=== PATIENT | male | born 1975 | race Caucasian/White ===

== ENCOUNTER 2017-04-24 16:13 | Emergency (ER) | payer OTHER, BC ==
[2017-04-24] MEDS ORDERED: Sodium Chloride 0.9% 1,000 ML IV ONE ×2 (16:39→18:41)
--- NOTE | 2017-04-24 16:39 | EDM.PDOC ---
ED HPI GENERAL MEDICAL PROBLEM - General Chief Complaint: General Stated Complaint: FLU/TYPE B Time Seen by Provider: 04/24/17 16:25 Source of Information: Reports: Patient History Limitations: Reports: No Limitations - History of Present Illness INITIAL COMMENTS - FREE TEXT/NARRATIVE: HISTORY AND PHYSICAL: History of present illness: [Pt comes to the ER reporting that he has Influenza B. Had a flu swab completed at [facility] today but was not seen there by a healthcare provider. Was advised to come to the emergency room for treatment. Developed symptoms of body aches, fatigue, and cough within the past 72 hours. He has felt very dehydrated and has not had anything to drink today. Has decreased appetite. No abdominal pain. No nausea, vomiting, diarrhea or constipation. No black or tarry stools and no blood in his bowel movements. Urine is normal. 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 2 cardiac stents. Does not have a local PCP or follow with any specialists regularly. [facility] is contacted by phone and confirms positive influenza B swab.] Review of systems: As per history of present illness and below otherwise all systems reviewed and negative. Past medical history: As per history of present illness and as reviewed below otherwise noncontributory. Surgical history: As per history of present illness and as reviewed below otherwise noncontributory. Social history: No reported history of drug or alcohol abuse. Family history: As per history of present illness and as reviewed below otherwise noncontributory. Physical exam: HEENT: Atraumatic, normocephalic. Oral mucous membranes are mildly dry. Neck supple, no lymphadenopathy. Throat is clear. Lungs: Clear to auscultation, breath sounds equal bilaterally. Cough is dry and hacking. Heart: S1S2, regular rate and rhythm. No murmur gallop click or rub., negative for clicks, rubs, or JVD. Abdomen: Bowel sounds are normoactive throughout. Soft, nondistended, nontender. Negative for masses, guarding and rebound. Pelvis: Stable nontender. Genitourinary: Deferred. Rectal: Deferred. Extremities: Atraumatic, negative for cords or calf pain. Neurovascular unremarkable. Neuro: Awake, alert, oriented. Motor and sensory unremarkable throughout. Exam nonfocal. 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 Patient is feeling improved after 2 L of normal saline. Discussed with the patient that his lab results chest x-ray and EKG show no abnormalities. We reviewed he falls outside of the treatment window that would be beneficial for Tamiflu. We discussed conservative and symptomatic therapies. He is given referral to establish care with local PCP. Push fluids, get plenty of rest. He is in agreement with today' s plan. Strict return precautions are reviewed.] Definitive disposition and diagnosis as appropriate pending reevaluation and review of above. Bilateral Chest Pain Score (Numeric/FACES): 8 - Related Data Allergies Allergy/AdvReac Type Severity Reaction Status Date / Time No Known Allergies Allergy Verified 04/24/17 16:52 Home Meds: Home Meds Aspirin 81 mg DAILY 04/24/17 [History] Bp Med 04/24/17 [History] Mycophenolate Mofetil [Cellcept] 1,000 mg BID 04/24/17 [History] Tacrolimus [Prograf] 0.5 mg DAILY 04/24/17 [History] predniSONE [Prednisone] 0.5 mg DAILY 04/24/17 [History] ED ROS GENERAL - Review of Systems Review Of Systems: ROS reveals no pertinent complaints other than HPI. ED EXAM, GENERAL - Physical Exam Exam: See Below Course - Vital Signs Last Recorded V/S: Last Vital Signs Temp 102.7 F H 04/24/17 18:49 Pulse 101 H 04/24/17 17:27 Resp 24 H 04/24/17 17:27 BP 179/91 H 04/24/17 17:27 Pulse Ox 98 04/24/17 17:27 - Orders/Labs/Meds Orders: Active Orders 24 hr Category Date Time Status EKG Documentation Completion [RC] STAT Care 04/24/17 16:36 Active Chest 2V [CR] Stat Exams 04/24/17 16:37 Taken Labs: Laboratory Tests 04/24/17 04/24/17 04/24/17 Range/Units 16:55 16:55 16:55 WBC 4.33 (4.0-11.0) K/uL RBC 4.92 (4.50-5.90) M/uL Hgb 14.2 (13.0-17.0) g/dL Hct 42.7 (38.0-50.0) % MCV 86.8 (80.0-98.0) fL MCH 28.9 (27.0-32.0) pg MCHC 33.3 (31.0-37.0) g/dL RDW Std Deviation 46.0 (28.0-62.0) fl RDW Coeff of Olga 15 (11.0-15.0) % Plt Count 122 L (150-400) K/uL MPV 10.10 (7.40-12.00) fL Add Manual Diff YES Neutrophils % (Manual) 73 (48.0-80.0) % Band Neutrophils % 6 % Lymphocytes % (Manual) 8 L (16.0-40.0) % Monocytes % (Manual) 11 (0.0-15.0) % Basophils % (Manual) 2 H (0.0-1.5) % Nucleated RBC % 0.0 /100WBC Absolute Seg Neuts 3.2 (1.4-5.7) Band Neutrophils # 0.3 Lymphocytes # (Manual) 0.3 L (0.6-2.4) Monocytes # (Manual) 0.5 (0.0-0.8) Basophils # (Manual) 0.1 (0.0-0.1) Nucleated RBCs # 0 K/uL Sodium 137 (136-146) mmol/L Potassium 4.0 (3.5-5.1) mmol/L Chloride 105 (98-110) mmol/L Carbon Dioxide 24 (21-31) mmol/L BUN 15 (6.0-23.0) mg/dL Creatinine 1.3 (0.6-1.5) mg/dL Est Cr Clr Drug Dosing TNP Estimated GFR (MDRD) > 60.0 ml/min Glucose 91 (60-110) mg/dL Calcium 9.1 (8.8-10.8) mg/dL Total Bilirubin 0.5 (0.1-1.5) mg/dL AST 22 (5-40) IU/L ALT 23 (8-54) IU/L Alkaline Phosphatase 72 (40-150) Total Protein 7.2 (6.0-8.0) g/dL Albumin 4.1 (3.5-5.0) g/dL Globulin 3.1 (2.0-3.5) g/dL Albumin/Globulin Ratio 1.3 (1.3-2.8) Urine Color YELLOW Urine Appearance CLEAR Urine pH 6.0 (5.0-8.0) Ur Specific Geraldine 1.020 (1.001-1.035) Urine Protein TRACE (NEGATIVE) mg/dL Urine Glucose (UA) NEGATIVE (NEGATIVE) mg/dL Urine Ketones TRACE H (NEGATIVE) mg/dL Urine Occult Blood NEGATIVE (NEGATIVE) Urine Nitrite NEGATIVE (NEGATIVE) Urine Bilirubin NEGATIVE (NEGATIVE) Urine Urobilinogen 0.2 (<2.0) EU/dL Ur Leukocyte Esterase NEGATIVE (NEGATIVE) Urine RBC 0-3 (0-2/HPF) Urine WBC 0-1 (0-5/HPF) Ur Epithelial Cells RAR (NONE-FEW) Urine Bacteria RARE (NEGATIVE) Meds: Medications Discontinued Medications Generic Name Dose Route Start Last Admin Trade Name Freq PRN Reason Stop Dose Admin Acetaminophen 1,000 mg 04/24/17 17:33 04/24/17 17:58 Tylenol Extra Strength PO 04/24/17 17:34 1,000 mg ONETIME ONE Administration Sodium Chloride 1,000 mls @ 999 mls/hr 04/24/17 16:39 04/24/17 17:01 Normal Saline IV 04/24/17 17:39 999 mls/hr STAT ONE Administration Sodium Chloride 1,000 mls @ 999 mls/hr 04/24/17 18:41 04/24/17 18:46 Normal Saline IV 04/24/17 19:41 999 mls/hr STAT ONE Administration Ibuprofen 400 mg 04/24/17 18:41 04/24/17 18:49 Motrin PO 04/24/17 18:42 400 mg ONETIME ONE Administration Departure - Departure Time of Disposition: 19:40 Disposition: Home, Self-Care 01 Condition: Good Clinical Impression: Influenza B - Discharge Information Instructions: Influenza, Adult, [id number] Referrals: PCP,None [Primary Care Provider] - Forms: ED Department Discharge Additional Instructions: The following information is given to patients seen in the emergency department who are being discharged to home. This information is to outline your options for follow-up care. We provide all patients seen in our emergency department with a follow-up referral. The need for follow-up, as well as the timing and circumstances, are variable depending upon the specifics of your emergency department visit. If you don't have a primary care physician on staff, we will provide you with a referral. We always advise you to contact your personal physician following an emergency department visit to inform them of the circumstance of the visit and for follow-up with them and/or the need for any referrals to a consulting specialist. The emergency department will also refer you to a specialist when appropriate. This referral assures that you have the opportunity for follow-up care with a specialist. All of these measure are taken in an effort to provide you with optimal care, which includes your follow-up. Under all circumstances we always encourage you to contact your private physician who remains a resource for coordinating your care. When calling for follow-up care, please make the office aware that this follow-up is from your recent emergency room visit. If for any reason you are refused follow-up, please contact the [facility] emergency department at and asked to speak to the emergency department charge nurse. [facility] [address] [place] [id number] Establish care with a local primary care provider at the clinic listed above and follow-up there in the next 48-72 hours.. Push fluids, get plenty of rest, avoid dehydration. Alternate Tylenol with ibuprofen every 2-3 hours as needed for fever or discomfort. Robitussin or Delsym as needed for cough. Return to ER as needed as discussed. - My Orders Last 24 Hours: My Active Orders 04/24/17 16:36 EKG Documentation Completion [RC] STAT 04/24/17 16:37 Chest 2V [CR] Stat - Assessment/Plan Last 24 Hours: My Active Orders 04/24/17 16:36 EKG Documentation Completion [RC] STAT 04/24/17 16:37 Chest 2V [CR] Stat
[2017-04-24] MEDS ORDERED: Acetaminophen 500 MG Tab PO ONE (17:33)
[2017-04-24 17:44] LABS: CHLORIDE,CL 105 mmol/L (98-110); SODIUM,NA 137 mmol/L (136-146)
[2017-04-24] MEDS ORDERED: Ibuprofen 400 MG Tab PO ONE (18:41)
--- NOTE | 2017-04-25 12:37 | CR ---
EXAM DATE: 04/24/17 PATIENT'S AGE: 42 Patient: TIA YOON Facility: [place], [place] Site . Site : [id number] Study: XRay Chest [id number]/[id number] 6:30:02 PM Ordering Physician: Doctor Barbour Final Report: INDICATION: cough, dx with influenza type B today TECHNIQUE: Chest 2 views COMPARISON: None FINDINGS: Cardiovascular and mediastinum: Heart size and vasculature are normal in caliber and appearance. Mediastinum is within normal limits. Lungs and pleural spaces: No focal consolidation. No sign of pleural effusion. No pneumothorax. Bones and soft tissues: No significant findings. IMPRESSION: No acute cardiopulmonary disease Dictated by Tommy Rosenthal MD @ 04/24/2017 6:40:59 PM Dictated by: Tommy Rosenthal MD @ 04/24/2017 18:41:08 (Electronic Signature) Report Signed by Proxy. [email or web address]
== END 2017-04-24 20:00 | disposition home or self-care (01) ==
LOC: MW.ED 16:13
DX: J10.1 Influenza due to other identified influenza virus with other respiratory manifestations (principal); Z79.82 Long term (current) use of aspirin; Z79.899 Other long term (current) drug therapy
CPT/HCPCS: 36415; 71046; 80053; 81001; 85025; 93005; 96360; 96361; 99284; A9270; J7040

== ENCOUNTER 2020-11-08 05:56 | Emergency (ER) | payer BC, OTHER ==
[2020-11-08] MEDS ORDERED: Sodium Chloride 0.9% 10 ML Syringe FLUSH PRN (06:23)
[2020-11-08] MEDS ORDERED: Sodium Chloride 0.9% 2.5 ML Syringe FLUSH PRN (06:23)
--- NOTE | 2020-11-08 06:23 | EDM.PDOC ---
<Porter Iglesias - Last Filed: 11/08/20 06:14> ED HPI GENERAL MEDICAL PROBLEM - General Chief Complaint: Fever Stated Complaint: FEVER- DOUBLE ORGAN TRANSPLANT RECIPIENT Time Seen by Provider: 11/08/20 05:58 - History of Present Illness INITIAL COMMENTS - FREE TEXT/NARRATIVE: History of present illness: [] The patient is fever cough headache and body aches. He is gotten short of breath at work. The patient is not vaccinated for Covid because he personally knows 3 people to got the vaccine got terribly ill and is worried about his transplant. 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 The patient has not used insulin since. He was originally a type 1 insulin-dependent diabetic. Review of systems: As per history of present illness and below otherwise all systems reviewed and negative. Past medical history: As per history of present illness and as reviewed below otherwise noncontributory. Surgical history: As per history of present illness and as reviewed below otherwise noncontributory. Social history: No reported history of drug or alcohol abuse. Family history: As per history of present illness and as reviewed below otherwise nonc ontributory. Physical exam: Constitutional - well developed, well-nourished and in no acute distress HEENT - normocephalic, no evidence of trauma - external nose and mouth normal - no mass in neck and no JVD - mucosae moist EYES - full EOM, PERRL, no icterus - no evidence of inflammation, injection, or drainage Respiratory - no respiratory distress, equal bilateral expansion, lungs clear to auscultation and no abnormal lung sounds Cardiovascular - Regular Rhythm with S1 and S2 appreciated and no murmur, gallop or rub. GI - abdomen soft without distension or organomegaly - normal bowel sounds - no guard or rebound Musculoskeletal no gross deformity of long bones or joints - no tenderness, swelling or edema Neurologic - Alert and oriented times four - CN II-XII grossly intact - motor sensory and coordination symmetrically normal Psychiatric - appropriate mood and affect with normal thought content Hematologic - No petechiae or purpura - mucosa appropriate color and sclera not pale - normal nail bed color and refill Integument - no rash or evidence of trauma - normal turgor Diagnostics: [] Therapeutics: [] Impression: [] Plan: [] Definitive disposition and diagnosis as appropriate pending reevaluation and review of above. - Related Data Allergies Allergy/AdvReac Type Severity Reaction Status Date / Time No Known Allergies Allergy Verified 04/24/17 16:52 Home Meds: Home Meds Aspirin 81 mg DAILY 04/24/17 [History] Bp Med 04/24/17 [History] Tacrolimus [Prograf] 0.5 mg DAILY 04/24/17 [History] mycophenolate mofetiL [Cellcept] 1,000 mg BID 04/24/17 [History] predniSONE [Prednisone] 0.5 mg DAILY 04/24/17 [History] Past Medical History Cardiovascular History: Reports: Hypertension, Prior Cardiac Arrest, Stents, Other (See Below) Other Cardiovascular History: v fib episodes, TIA Respiratory History: Reports: None Genitourinary History: Reports: Chronic Renal Insuffiency, Dialysis, Dialysis, Peritoneal, Other (See Below) Other Genitourinary History: cath site fistula, kidney transplant Neurological History: Reports: Seizure, TIA Psychiatric History: Reports: None Endocrine/Metabolic History: Reports: Other (See Below) Other Endocrine/Metabolic History: pancreatic transplant - Past Surgical History HEENT Surgical History: Reports: Laser Surgery Cardiovascular Surgical History: Reports: Coronary Artery Stent GI Surgical History: Reports: Appendectomy, Cholecystectomy Social & Family History - Family History Family Medical History: No Pertinent Family History ED ROS GENERAL - Review of Systems Review Of Systems: Comprehensive ROS is negative, except as noted in HPI. ED EXAM, GENERAL - Physical Exam Exam: See Below Free Text/Narrative:: My physical exam is in the HPI Departure - Departure Disposition: Home, Self-Care 01 Clinical Impression: COVID - Discharge Information Instructions: What You Should Know About COVID-19 to Protect Yourself and Others - [facility] Referrals: Shawna Murrieta NP [Primary Care Provider] - Forms: ED Department Discharge Additional Instructions: Home Care Instructions for Patients with Mild Respiratory Infection Most people with respiratory infections like colds, the flu, and Coronavirus Disease (COVID-19) will have mild illness and can get better with appropriate home care and without the need to see a provider. People who are elderly, , or have a weak immune system, or other medical problem are at higher risk of more serious illness or complications. It is recommended that they carefully monitor their symptoms closely and seek medical care early if their symptoms get worse. TREATMENT AND MEDICAL CARE Treatment There is no specific treatment for most viruses including those that that cause the common cold and those that cause COVID-19. Sometimes there is treatment for the viruses that cause influenza if given early. Antibiotics treat infections caused by bacteria, but they do not work against viruses. Most people recover on their own from these viruses, including COVID-19. Here are steps that you can take to help you get better: Rest Drink plenty of fluids Take [id number] cold and flu medications to reduce fever and pain. Fol low the instructions on the package, unless your doctor gave you instructions. Note that these medicines do not cure the illness and therefore do not stop you from spreading germs. Children should not be given medication that contains aspirin (acetylsalicylic acid) because it can cause a rare but serious illness called Tong syndrome. Medicines without aspirin include acetaminophen (Tylenol) and ibuprofen (Advil, Motrin). Children younger than age 2 should not be given any yzqx-edu-[id number] cold medications without first speaking with a doctor. Seeking Medical Care You should seek medical care if you are not getting better within a week, or if your symptoms get worse. If you are elderly, , have a weak immune system, or other medical problems, call your doctor right away. It is best to call ahead of time to discuss your symptoms, if possible. This may allow you to receive the advice you need by phone. By avoiding a visit to a healthcare facility, you protect yourself from getting a new infection and protect others from catching an infection from you. If you do visit a healthcare facility, put on a mask to protect other patients and staff. It is recommended that you seek medical care for serious symptoms, such as: People with potentially life-threatening symptoms should call 911. If possible, put on a facemask before emergency medical services arrive. PROTECTING OTHERS Follow the steps below to help prevent the disease from spreading to people in your home and community. Stay home when you are sick Stay home do not go to work, school, or public areas. Stay home for at least 24 hours after your symptoms have gone away without the use of fever-reducing medicines. If you must leave home while you are sick, try to avoid using public transportation, ride-shares, and taxis. Wear a mask if possible. Separate yourself from other people and animals in your home Stay in a specific room and away from other people in your home as much as possible. Use a separate bathroom, if available. Try to stay at least 6 feet from others. Do not handle pets or other animals while you are sick. Cover your coughs and sneezes Cover your mouth and nose with a tissue when you cough or sneeze. Throw used tissues in a lined trash can; immediately wash your hands. Avoid sharing personal household items Do not share dishes, drinking glasses, cups, eating utensils, towels, or bedding with other people or pets in your home. Wash them thoroughly with soap and water after use. Clean your hands often Wash your hands often with soap and water for at least 20 seconds. If soap and water are not available, clean your hands with an alcohol-based hand life educator that contains at least 60% alcohol, covering all surfaces of your hands and rubbing them together until they feel dry. Use soap and water if your hands are visibly dirty. Clean all high-touch surfaces every day High touch surfaces include counters, tabletops, doorknobs, bathroom fixtures, toilets, phones, keyboards, tablets, and bedside tables. Also, clean any surfaces that may have body fluids on them. Use a household cleaning spray or wipe, according to the product label instructions. <Ivan Buenrostro - Last Filed: 11/08/20 07:54> Course - Vital Signs Last Recorded V/S: Last Vital Signs Temp 97.8 F 11/08/20 06:12 Pulse 81 11/08/20 07:10 Resp 16 11/08/20 07:10 BP 136/77 11/08/20 07:10 Pulse Ox 97 11/08/20 07:10 - Orders/Labs/Meds Orders: Active Orders 24 hr Category Date Time Status Sodium Chloride 0.9% [Saline Flush] Med 11/08/20 06:23 Active 10 ml FLUSH ASDIRECTED PRN Sodium Chloride 0.9% [Saline Flush] Med 11/08/20 06:23 Active 2.5 ml FLUSH ASDIRECTED PRN Saline Lock Insert [OM.PC] Stat Oth 11/08/20 06:23 Ordered Medication Orders Sodium Chloride (Sodium Chloride 0.9% 10 Ml Syringe) 10 ml FLUSH ASDIRECTED PRN PRN Reason: Keep Vein Open Sodium Chloride (Sodium Chloride 0.9% 2.5 Ml Syringe) 2.5 ml FLUSH ASDIRECTED PRN PRN Reason: Keep Vein Open Labs: Laboratory Tests 11/08/20 11/08/20 11/08/20 Range/Units 06:37 06:37 06:40 WBC 4.00 (4.0-11.0) K/uL RBC 4.79 (4.50-5.90) M/uL Hgb 14.5 (13.0-17.0) g/dL Hct 41.8 (38.0-50.0) % MCV 87.3 (80.0-98.0) fL MCH 30.3 (27.0-32.0) pg MCHC 34.7 (31.0-37.0) g/dL RDW Std Deviation 43.0 (28.0-62.0) fl RDW Coeff of Olga 14 (11.0-15.0) % Plt Count 152 (150-400) K/uL MPV 10.40 (7.40-12.00) fL Neut % (Auto) 60.9 (48.0-80.0) % Lymph % (Auto) 19.0 (16.0-40.0) % [place] % (Auto) 17.8 H (0.0-15.0) % Eos % (Auto) 1.0 (0.0-7.0) % Baso % (Auto) 1.3 (0.0-1.5) % Neut # (Auto) 2.4 (1.4-5.7) K/uL Lymph # (Auto) 0.8 (0.6-2.4) K/uL [place] # (Auto) 0.7 (0.0-0.8) K/uL Eos # (Auto) 0.0 (0.0-0.7) K/uL Baso # (Auto) 0.1 (0.0-0.1) K/uL Nucleated RBC % 0.0 /100WBC Nucleated RBCs # 0 K/uL Sodium 139 (136-148) mmol/L Potassium 3.9 (3.5-5.1) mmol/L Chloride 100 (98-107) mmol/L Carbon Dioxide 29.6 (21.0-32.0) mmol/L BUN 17 (7.0-18.0) mg/dL Creatinine 1.4 H (0.8-1.3) mg/dL Est Cr Clr Drug Dosing 71.71 mL/min Estimated GFR (MDRD) 55.1 ml/min Glucose 101 (74-106) mg/dL Calcium 8.5 (8.5-10.1) mg/dL Total Bilirubin 0.4 (0.2-1.0) mg/dL AST 17 (15-37) IU/L ALT 27 (14-63) IU/L Alkaline Phosphatase 70 (46-116) U/L Total Protein 6.9 (6.4-8.2) g/dL Albumin 3.7 (3.4-5.0) g/dL Globulin 3.2 (2.6-4.0) g/dL Albumin/Globulin Ratio 1.2 (0.9-1.6) SARS-CoV-2 RNA (YULISSA) POSITIVE H (NEGATIVE) Meds: Medications Generic Name Dose Route Start Last Admin Trade Name Freq PRN Reason Stop Dose Admin Sodium Chloride 10 ml 11/08/20 06:23 Sodium Chloride 0.9% 10 Ml Syringe FLUSH ASDIRECTED PRN Keep Vein Open Sodium Chloride 2.5 ml 11/08/20 06:23 Sodium Chloride 0.9% 2.5 Ml Syringe FLUSH ASDIRECTED PRN Keep Vein Open Departure - Departure Time of Disposition: 07:51 Condition: Good - Discharge Information *PRESCRIPTION DRUG MONITORING PROGRAM REVIEWED*: Not Applicable *COPY OF PRESCRIPTION DRUG MONITORING REPORT IN PATIENT CATHERINE: Not Applicable Sepsis Event Note (ED) - Focused Exam Vital Signs: Vital Signs Temp Pulse Resp BP Pulse Ox 11/08/20 07:10 81 16 136/77 97 11/08/20 06:12 97.8 F 87 18 124/71 99
--- NOTE | 2020-11-08 06:50 | CR ---
INDICATION: Chest pain with fever TECHNIQUE: Chest 1 views COMPARISON: 04/24/2017 FINDINGS: Cardiovascular and mediastinum: Heart size and vasculature are normal in caliber and appearance. Lungs and pleural spaces: Lungs are clear. No sign of infiltrate or mass. No sign of pleural effusion. No pneumothorax. Bones and soft tissues: No significant findings. IMPRESSION: No acute findings and no significant changes from the prior exam. No sign of pneumonia. Dictated by Rolan Anderson MD @ 11/08/2020 6:48:[address] Rolan Anderson @ Nov 08 2020 6:48AM
[2020-11-08 07:11] LABS: CARBON DIOXIDE,CO2 29.6 mmol/L (21.0-32.0); POTASSIUM,K 3.9 mmol/L (3.5-5.1)
== END 2020-11-08 08:13 | disposition home or self-care (01) ==
LOC: MW.ED 05:56
DX: U07.1 COVID-19 (principal); I12.9 Hypertensive chronic kidney disease with stage 1 through stage 4 chronic kidney disease, or unspecified chronic kidney disease; E10.22 Type 1 diabetes mellitus with diabetic chronic kidney disease; N18.9 Chronic kidney disease, unspecified; Z86.73 Personal history of transient ischemic attack (TIA), and cerebral infarction without residual deficits; Z79.82 Long term (current) use of aspirin; Z95.5 Presence of coronary angioplasty implant and graft; Z20.822 Contact with and (suspected) exposure to COVID-19
CPT/HCPCS: 36415; 71045; 71045-26; 80053; 85025; 99284-25; U0002

== ENCOUNTER 2022-10-21 23:22 | Emergency (ER) | payer BC, OTHER | END 2022-10-22 01:11 | disposition home or self-care (01) | LOC: MW.ED 23:22 | DX: R50.9 Fever, unspecified (principal); I12.9 Hypertensive chronic kidney disease with stage 1 through stage 4 chronic kidney disease, or unspecified chronic kidney disease; N18.9 Chronic kidney disease, unspecified; I49.01 Ventricular fibrillation; Z79.82 Long term (current) use of aspirin; Z79.899 Other long term (current) drug therapy; Z99.2 Dependence on renal dialysis; Z95.5 Presence of coronary angioplasty implant and graft | CPT/HCPCS: 82947; 99283; 99284; U0002 ==